=== PATIENT | male | born 1950 | race Caucasian/White ===

== ENCOUNTER 2020-12-27 16:32 | Outpatient (CLI) | payer MEDICARE, SELFPAY | END 2020-12-27 16:33 | disposition home or self-care (01) | LOC: ANHCOVIDVC 16:33 | PROVIDERS: PCP Internal Medicine | DX: Z23 Encounter for immunization (principal) | CPT/HCPCS: 0001A; 91300 ==

== ENCOUNTER 2021-01-17 16:17 | Outpatient (CLI) | payer MEDICARE, SELFPAY | END 2021-01-17 16:18 | disposition home or self-care (01) | LOC: ANHCOVIDVC 16:17 | PROVIDERS: PCP Internal Medicine | DX: Z23 Encounter for immunization (principal) | CPT/HCPCS: 0002A; 91300 ==

== ENCOUNTER 2022-06-24 01:28 | Day surgery (SDC) | payer MEDICARE, SELFPAY ==
[2022-06-11 13:34] VITALS: BMI 26.4
--- NOTE | 2022-06-23 14:50 | PM.HPGS ---
History of Present Illness History of Present Illness Consent: Risks, benefits, and alternatives have been discussed and questions answered. Patient agrees to proceed with procedure. Chief complaint: hx of colon polyps Narrative: Stan Cano is a 71 year old male who was referred for colon cancer screening. 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 Review of Systems Review of Systems: All systems reviewed & are unremarkable except as noted in HPI and below PMFSH Past Medical History Medical History HTN (hypertension) Hyperlipidemia Surgical History Surgical History History of AAA (abdominal aortic aneurysm) repair Social History Social History Years smoked: 50 Smoking status: Former smoker Alcohol intake: former Substance use type: does not use Living arrangements: with family Spiritual care concerns: No Meds Home Medications and Allergies Home Medications Medication Instructions Recorded Confirmed Type amlodipine 5 mg tablet 5 mg PO DAILY 01/02/21 06/11/22 History atorvastatin 40 mg tablet 40 mg PO DAILY 01/02/21 06/11/22 History cholecalciferol (vitamin D3) 25 25 mcg PO DAILY 06/11/22 06/11/22 History mcg (1,000 unit) tablet (Vitamin D3) cranberry extract 300 mg tablet 300 mg PO DAILY 06/11/22 06/11/22 History garlic 400 mg tablet 400 mg PO DAILY 06/11/22 06/11/22 History lisinopril 20 1 tablet PO DAILY 06/11/22 06/11/22 History mg-hydrochlorothiazide 12.5 mg tablet multivitamin with minerals-folic 1 tablet PO DAILY 06/11/22 06/11/22 History acid 0.4 mg tablet Allergies Allergy/AdvReac Type Severity Reaction Status Date / Time No Known Allergies Allergy Verified 06/24/22 09:27 Exam Const: General: alert Orientation/consciousness: patient oriented x3 Resp: Auscultation: clear to auscultation bilaterally Cardio: Rhythm: regular rhythm GI: GI Palp: Yes Soft to palpation and No Tenderness to palpation present (GI) Neuro: General: patient oriented x3 Assessment and Plan Assessment and plan (1) Colon cancer screening: Code(s): Z12.11 - Encounter for screening for malignant neoplasm of colon Status: Acute Assessment and Plan: Colonoscopy with possible biopsy or polypectomy or cautery or injection of substances.
--- NOTE | 2022-06-24 08:03 | P.PNAN_ITS ---
Anes - Initial Pre Proc Eval Procedure: Operation Date: 06/24/22 10:45 Proposed Procedures p Screening Colonoscopy - Javier Abrams MD Date/Time: 06/24/22 08:03 Surgeon: Javier Abrams MD Pre Op Diagnosis: hx of colon polyps Patient Data Age: 71 Gender: M Height: 1.83 m Weight: 88.5 kg Allergies Allergy/AdvReac Type Severity Reaction Status Date / Time No Known Allergies Allergy Verified 06/24/22 09:27 Home Medications Medication Instructions Recorded Confirmed Type amlodipine 5 mg tablet 5 mg PO DAILY 01/02/21 06/11/22 History atorvastatin 40 mg tablet 40 mg PO DAILY 01/02/21 06/11/22 History cholecalciferol (vitamin D3) 25 25 mcg PO DAILY 06/11/22 06/11/22 History mcg (1,000 unit) tablet (Vitamin D3) cranberry extract 300 mg tablet 300 mg PO DAILY 06/11/22 06/11/22 History garlic 400 mg tablet 400 mg PO DAILY 06/11/22 06/11/22 History lisinopril 20 1 tablet PO DAILY 06/11/22 06/11/22 History mg-hydrochlorothiazide 12.5 mg tablet multivitamin with minerals-folic 1 tablet PO DAILY 06/11/22 06/11/22 History acid 0.4 mg tablet Patient hx anesthesia problems: none Family hx anesthesia problems: none Results Review: All pre-operative results and documents have been reviewed as part of the pre- operative evaluation. PMFSH Past Medical History Medical History (Updated 06/24/22 @ 08:04 by Gurjit Huggins MD) HTN (hypertension) Hyperlipidemia Surgical History Surgical History (Updated 06/24/22 @ 08:04 by Gurjit Huggins MD) History of AAA (abdominal aortic aneurysm) repair Social History Social History (System 01/03/20 @ 13:08 by Georgie Aguilar) Years smoked: 50 Smoking status: Former smoker Alcohol intake: former Substance use type: does not use Living arrangements: with family Spiritual care concerns: No Anes - Eval Final PreProcedure Day of Procedure 06/24/22 08:03 Patient weight: overweight Heart: regular rate and rhythm Lungs: clear to auscultation and normal air movement Airway: Mallampati scale class II Neurological: alert and oriented Last oral intake: >/= 8 hours ASA classification: III Emergent: no Anesthetic plan: proceed Anesthesia type and monitoring: general GIVS Results Review: All pre-operative results and documents have been reviewed as part of the pre- operative evaluation. Informed Consent: The patient's anesthetic plan and its attendant risks and benefits were discussed with the patient/family/POA. Questions were solicited and answers provided to the satisfaction of the patient/family/POA.
[2022-06-24 09:28] VITALS: BP 147/90; PULSE 61; RESP 17; TEMP 36.4; O2SAT 97
[2022-06-24] MEDS: LACTATED RINGERS 1,000 ML 150 ML IV CONT (09:43)
[2022-06-24] MEDS: SIMETHICONE ORAL SUSPENSION 20 MG/0.3 ML 30 ML BOTTLE 0.6 ML IRRIGATION (10:51)
[2022-06-24 11:01] VITALS: BP 127/62; PULSE 59; RESP 22; O2SAT 96
[2022-06-24 11:11] VITALS: BP 133/116; PULSE 57; RESP 24; O2SAT 98
[2022-06-24 11:21] VITALS: BP 156/83; PULSE 57; RESP 19; O2SAT 98
== END 2022-06-24 11:30 | disposition home or self-care (01) ==
PROVIDERS: PCP Internal Medicine; Visit Provider Internal Medicine Gastroenterology
PROC: 0DJD8ZZ Inspection of Lower Intestinal Tract, Via Natural or Artificial Opening Endoscopic (ICD-10-PCS; CPT 45378; principal; 2022-06-24 10:45)
DX: Z12.11 Encounter for screening for malignant neoplasm of colon (principal); K63.5 Polyp of colon; I10 Essential (primary) hypertension; E78.5 Hyperlipidemia, unspecified; Z87.891 Personal history of nicotine dependence
CPT/HCPCS: 45380; 88305; J2704; J7120